=== PATIENT | male | born 1945 | race Caucasian/White ===

== ENCOUNTER → 2018-12-30 | Outpatient (CLI) | payer MEDICARE ==
[2018-12-30 18:47] LABS: Chol/HDL Ratio 4.12
== END | disposition home or self-care (01) ==
LOC: LABWHC1 11:49
PROVIDERS: ATTEND Internal Medicine Cardiovascular Disease
DX: E78.2 Mixed hyperlipidemia (principal)
CPT/HCPCS: 36415; 80061; 84450; 84460

== ENCOUNTER → 2019-04-09 | Outpatient (CLI) | payer MEDICARE ==
[2019-04-09 11:57] LABS: HGB 15.7 gm/dL (13.0-17.5); MCHC 33.3 g/dL (31.0-37.0); MCV 99.2 fL (80.0-100.0); Mean Platelet Volume 8.4; Platelet Count 212 k/uL (150-450); RBC 4.74 m/uL (4.30-5.90); RDW 13.1 % (11.5-15.5); WBC 8.8 k/uL (3.8-10.6)
[2019-04-09 12:06] LABS: Potassium 4.8 mmol/L (3.5-5.1)
== END | disposition home or self-care (01) ==
LOC: LABPAT 10:57
PROVIDERS: ATTEND Internal Medicine Cardiovascular Disease
DX: Z01.812 Encounter for preprocedural laboratory examination (principal); I48.21 Permanent atrial fibrillation
CPT/HCPCS: 80051; 82565; 84520; 85027

== ENCOUNTER → 2019-04-23 | Day surgery (SDC) | payer MEDICARE ==
[2019-04-21 11:40] VITALS: BMI 30.6
[~2019-04-23] MED LIST: ALPRAZolam 0.25 MG TAB PO PRN; ALPRAZolam 0.5 MG TAB PO PRN; ASPIRIN 325 MG TAB PO ONE; ATORVASTATIN 80 MG TAB PO ONE; IOPAMIDOL-370 125ML BTL INJ ONE; LIDOCAINE 1% INJ 10MG/ML (20 ML MDV) ONE; LIDOCAINE 1% INJ 10MG/ML (20 ML MDV) SQ ONE; MIDAZOLAM 2 MG/2 ML VIAL IV ONE; NITROGLYCERIN SL TABS 0.4 MG TAB SUBLINGUAL PRN; SODIUM CHLORIDE 0.9% 1,000 ML IV ONE; SODIUM CHLORIDE 0.9% 1,000 ML IV SCH; SODIUM CHLORIDE 0.9% 1,000 ML in EMPTY BAG 1 BAG IV ONE; fentaNYL (PF) 50 MCG/ML 2 ML AMP IV ONE; fentaNYL (PF) 50 MCG/ML 2 ML AMP ONE
[2019-04-23 08:08] LABS: Glucose,Whole Blood 94 mg/dL (75-99)
[2019-04-23 08:20] LABS: Prothrombin Time 10.6 sec (9.0-12.0)
[2019-04-23] MEDS: BENZOCAINE SPRAY 1 CAN MUCOUS MEM ONE ×2 (09:24→09:27)
--- NOTE | 2019-04-23 10:00 | ECHOT ---
TRANSESOPHAGEAL ECHOCARDIOGRAM INDICATION: Aortic stenosis. PROCEDURE NOTE: After obtaining informed consent, transesophageal echocardiogram was performed in left lateral position using an Omniplane probe. Local and IV sedation were obtained by 1 mg of Versed and 50 mcg of fentanyl. The patient tolerated the procedure well without any obvious immediate complications. The patient received moderate conscious sedation. Total sedation time was 5 minutes. FINDINGS: 1. Aortic valve is a 3-leaflet valve appears calcified with moderate to severe restriction in leaflet mobility. By planimetry, the valve area is 0.7 square centimeters. 2. Mitral valve shows mild tiny calcification with mild mitral regurgitation. 3. Tricuspid valve shows mild tricuspid regurgitation. 4. Interatrial Septum: There is no evidence of onxf-ed-xibyq shunt by color-flow Doppler or sitbw-dz-apqw shunt by agitated saline contrast study. 5. Aorta shows moderate atherosclerotic changes. Aortic root measures within normal limits. 6. Left ventricle has normal size concentric left ventricular hypertrophy with normal LV function. 7. Left atrium appears enlarged. 8. Right atrium and right ventricle exam within normal limits. CONCLUSIONS: Severe aortic stenosis in a patient with 3-leaflet aortic valve that is heavily calcified and shows restricted leaflet mobility. MMODL / IJN: [id number] /
[2019-04-23 10:49] VITALS: RESP 14
--- NOTE | 2019-04-23 11:15 | CC ---
CARDIAC CATHETERIZATION REPORT PROCEDURE NOTE: After obtaining informed consent, left heart catheterization and coronary angiogram were performed via the right femoral artery using standard Angel catheters. Patient tolerated the procedure well without any obvious immediate complications. A femoral angiogram was performed and Angio-Seal was deployed for hemostasis. Patient received moderate conscious sedation, total sedation time was 21 minutes. FINDINGS: 1. HEMODYNAMICS: Left ventricular end-diastolic pressure is 12 mm. There is no significant gradient across the aortic valve. 2. LEFT VENTRICULOGRAM: Left ventriculogram is not performed. HEMODYNAMICS: 1. Left ventricular end-diastolic pressure is 5 mm, there was a gradient of 17 mm across the aortic valve consistent with mild to moderate aortic stenosis. ANGIOGRAPHIC DATA: 1. LEFT MAIN CORONARY ARTERY: Left main coronary artery appears calcified but is free of significant stenosis. Divides into left anterior descending coronary artery and circumflex coronary artery. LAD appears calcified with a moderate atherosclerotic plaque in the proximal portion with a 40% stenosis. There is a septal programming intern that has ostial stenosis. 2. Circumflex coronary artery is a nondominant vessel that shows mild nonobstructive disease. 3. Right coronary artery is a dominant vessel and is free of significant stenosis. CONCLUSION: 1. Moderate atherosclerotic plaque involving proximal LAD. 2. Hxme-kv-bovtsiyy aortic stenosis. PLAN: I reviewed angiographic data with the patient and told him that he does not need aortic valve replacement at this stage as the gradient across the aortic valve is not suggestive of severe aortic stenosis at this time. I will continue with watchful waiting and optimal medical therapy. MMODL / IJN: [id number] /
--- NOTE | 2019-04-23 11:21 | LTR ---
DATE OF SERVICE: 04/23/2019 RE: Marc Rodriguez Dear Dr. Grayson; I performed transesophageal echo and cardiac catheterization and Marc Rodriguez. A detailed catheterization note is enclosed for your records. In brief, his cardiac catheterization revealed mild to moderate nonobstructive disease involving proximal LAD with [id number] aortic stenosis. The patient does not need aortic valve replacement at this time. Thank you for giving me the privilege to participate in the care of this pleasant gentleman. Sincerely, MD TEENA Dickerson / JALIL: [id number] /
[2019-04-23 16:22] VITALS: BP 146/72; PULSE 64
== END ==
LOC: CATHCVL 07:41
PROVIDERS: ATTEND Internal Medicine Cardiovascular Disease
DX: I25.10 Atherosclerotic heart disease of native coronary artery without angina pectoris (principal); I08.3 Combined rheumatic disorders of mitral, aortic and tricuspid valves; I70.0 Atherosclerosis of aorta; I48.11 Longstanding persistent atrial fibrillation; E11.9 Type 2 diabetes mellitus without complications; E78.5 Hyperlipidemia, unspecified; E78.2 Mixed hyperlipidemia; F17.210 Nicotine dependence, cigarettes, uncomplicated; Z79.01 Long term (current) use of anticoagulants; Z79.4 Long term (current) use of insulin; Z79.899 Other long term (current) drug therapy; Z82.49 Family history of ischemic heart disease and other diseases of the circulatory system
CPT/HCPCS: 93312; 93320; 93325; 93458; 85610; C1760; C1894; C1769; J2250; J2001; J3010; Q9967

== ENCOUNTER 2019-04-26 03:42 | Emergency (ER) | payer MEDICARE ==
[2019-04-26 05:34] LABS: Basophils # (A) 0.2 k/uL (0-0.2); Basophils % (A) 2 %; Eosinophils # (A) 0.4 k/uL (0-0.7); Eosinophils % (A) 4 %; HCT 44.1 % (39.0-53.0); HGB 14.7 gm/dL (13.0-17.5); Lymphocytes # (A) 2.3 k/uL (1.0-4.8); Lymphocytes % (A) 27 %; MCH 32.4 pg (25.0-35.0); MCHC 33.4 g/dL (31.0-37.0); Mean Platelet Volume 8.5; Monocytes # (A) 0.8 k/uL (0-1.0); Monocytes % (A) 9 %; Neutrophils # (A) 4.7 k/uL (1.3-7.7); Neutrophils % (A) 54 %; Platelet Count 247 k/uL (150-450); RBC 4.55 m/uL (4.30-5.90); RDW 12.9 % (11.5-15.5); WBC 8.7 k/uL (3.8-10.6)
--- NOTE | 2019-04-26 05:38 | ED ---
General Adult HPI - General Source: patient Mode of arrival: wheelchair Limitations: no limitations <Elif Martell - Last Filed: 04/26/19 05:34> <Tricia Norwood - Last Filed: 04/26/19 08:06> - General Chief complaint: Recheck/Abnormal Lab/Rx Stated complaint: Post Op Bruising Time Seen by Provider: 04/26/19 04:21 - History of Present Illness Initial comments: Marc Hough) is a pleasant 73 yo M who presents to the ER today for evaluation of bruising in his right groin. Patient states that he had a cardiac catheterization earlier in the week and was told that if he develops any bruising or pain he should come back to the hospital for reevaluation. Patient states he had a small bruise after the procedure but over the past day noticed a bruise seem to get bigger. Patient's concerned because he is on Coumadin but his levels might be up. He reports he is otherwise feeling well and is very happy that his cardiac catheterization well and he doesn't need to have bypass surgery. (Elif Martell) - Related Data Home Medications Medication Instructions Recorded Confirmed Atorvastatin [Lipitor] 40 mg PO DAILY 04/21/19 04/23/19 Lisinopril [Zestril] 10 mg PO DAILY 04/21/19 04/23/19 Warfarin [Coumadin] 7.5 mg PO SUTUTHSA 04/21/19 04/23/19 Warfarin [Coumadin] 10 mg PO MOWEFR 04/21/19 04/23/19 diphenhydrAMINE [Benadryl] 25 mg PO DAILY 04/21/19 04/23/19 Insulin Degludec [Tresiba] 30 units SQ HS 04/23/19 04/23/19 Allergies Allergy/AdvReac Type Severity Reaction Status Date / Time No Known Allergies Allergy Verified 04/26/19 03:54 Review of Systems ROS Other: All systems not noted in ROS Statement are negative. <Elif Martell - Last Filed: 04/26/19 05:34> ROS Other: All systems not noted in ROS Statement are negative. <Tricia Norwood - Last Filed: 04/26/19 08:06> ROS Statement: Those systems with pertinent positive or pertinent negative responses have been documented in the HPI. Past Medical History Past Medical History: COPD, Diabetes Mellitus, GERD/Reflux, Osteoarthritis (OA) Additional Past Medical History / Comment(s): CMP. Enlarged heart. Pacemaker ([employer]). Neuropathy feet. History of Any Multi-Drug Resistant Organisms: None Reported Past Surgical History: Heart Catheterization, Pacemaker Additional Past Surgical History / Comment(s): Lt knee 1983. Pacemaker change 2008, 2017. Past Anesthesia/Blood Transfusion Reactions: No Reported Reaction Type of Cardiac Device: Permanent Pacemaker Device Placement Date:: 2000 Past Psychological History: Anxiety, Depression Smoking Status: Current every day smoker Past Alcohol Use History: None Reported Past Drug Use History: None Reported - Past Family History Father Family Medical History: Cancer Mother Family Medical History: Cancer <Elif Martell - Last Filed: 04/26/19 05:34> General Exam Limitations: no limitations <Elif Martell - Last Filed: 04/26/19 05:34> - General Exam Comments Initial Comments: Physical Exam GENERAL: Patient is well-developed and well-nourished. Patient is nontoxic and well- hydrated and is in no distress. HENT: Normocephalic, Atraumatic. EYES: PERRL, EOMI PULMONARY: Unlabored respirations. No audible rales rhonchi or wheezing was noted. CARDIOVASCULAR: There is a regular rate and rhythm without any murmurs gallops or rubs. ABDOMEN: Soft and nontender with normal bowel sounds. SKIN: Palpable hematoma in the right groin, no palpable thrill There is a area of bruising in the right groin that tracks down medially, nontender no erythema no signs of infection : Deferred NEUROLOGIC: Patient is alert and oriented x3. Moving all extremities spontaneously MUSCULOSKELETAL: Normal extremities with adequate strength and full range of motion. No lower extremity swelling or edema. No calf tenderness. PSYCHIATRIC: Normal psychiatric evaluation. (Elif Martell) Course Vital Signs 04/26/19 04/26/19 03:50 06:45 Temperature 98.2 F 97 F L Pulse Rate 62 65 Respiratory 16 18 Rate Blood Pressure 134/79 150/83 O2 Sat by Pulse 100 98 Oximetry Medical Decision Making <Elif Martell - Last Filed: 04/26/19 05:34> - Lab Data Result diagrams: 04/26/19 05:18 04/26/19 05:18 <Tricia Norwood - Last Filed: 04/26/19 08:06> - Medical Decision Making Very well-appearing 73-year-old male who has bruising in the groin after cath there is no palpable thrill or obvious pseudoaneurysm however we will obtain labs to make sure INR is goal and obtain ultrasound. Patient arrived around 4 AM, advised the patient that we only have emergency ultrasound available and since this does not require emergent intervention (Elif Martell) The patient was signed out to me at shift change. Ultrasound was reviewed and demonstrates no signs of pseudoaneurysm. The results are discussed with the patient. INR is subtherapeutic. The patient is to follow-up with his primary care doctor and pulmonary physical therapist this week. Return to the emergency room for any worsening symptoms. The patient was in agreement with the treatment plan is discharge home in stable condition (Tricia Norwood) - Lab Data Lab Results 04/26/19 04/26/19 04/26/19 Range/Units 05:18 05:18 05:18 WBC 8.7 (3.8-10.6) k/uL RBC 4.55 (4.30-5.90) m/uL Hgb 14.7 (13.0-17.5) gm/dL Hct 44.1 (39.0-53.0) % MCV 97.0 (80.0-100.0) fL MCH 32.4 (25.0-35.0) pg MCHC 33.4 (31.0-37.0) g/dL RDW 12.9 (11.5-15.5) % Plt Count 247 (150-450) k/uL Neutrophils % 54 % Lymphocytes % 27 % Monocytes % 9 % Eosinophils % 4 % Basophils % 2 % Neutrophils # 4.7 (1.3-7.7) k/uL Lymphocytes # 2.3 (1.0-4.8) k/uL Monocytes # 0.8 (0-1.0) k/uL Eosinophils # 0.4 (0-0.7) k/uL Basophils # 0.2 (0-0.2) k/uL PT 11.1 (9.0-12.0) sec INR 1.1 (<1.2) APTT 26.6 (22.0-30.0) sec Sodium 135 L (137-145) mmol/L Potassium 5.5 H (3.5-5.1) mmol/L Chloride 103 (98-107) mmol/L Carbon Dioxide 28 (22-30) mmol/L Anion Gap 4 mmol/L BUN 15 (9-20) mg/dL Creatinine 0.90 (0.66-1.25) mg/dL Est GFR (CKD-EPI)AfAm >90 (>60 ml/min/1.73 sqM) Est GFR (CKD-EPI)NonAf 86 (>60 ml/min/1.73 sqM) Glucose 124 H (74-99) mg/dL Calcium 8.9 (8.4-10.2) mg/dL Disposition <Elif Martell - Last Filed: 04/26/19 05:34> Is patient prescribed a controlled substance at d/c from ED?: No Time of Disposition: 08:03 <Tricia Norwood - Last Filed: 04/26/19 08:06> Clinical Impression: Hematoma of groin, Subtherapeutic international normalized ratio (INR), S/P cardiac cath Disposition: HOME SELF-CARE Condition: Stable Instructions (If sedation given, give patient instructions): Hematoma (ED) Additional Instructions: Please follow-up with your primary care doctor in 2-4 days. Return to the emergency room for any new or worsening symptoms Referrals: Maximo Osuna MD [Primary Care Provider] - 1-2 days
[2019-04-26 05:42] LABS: African American GFR (CKD) >90 (>60 ml/min/1.73 sqM); Anion Gap 4 mmol/L; Blood Urea Nitrogen 15 mg/dL (9-20); Calcium 8.9 mg/dL (8.4-10.2); Carbon Dioxide 28 mmol/L (22-30); Chloride 103 mmol/L (98-107); Glucose 124 mg/dL (74-99); Non-African American GFR(CKD) 86 (>60 ml/min/1.73 sqM); Sodium 135 mmol/L (137-145)
[2019-04-26 05:44] LABS: Potassium 5.5 mmol/L (3.5-5.1)
[2019-04-26 05:58] LABS: INR 1.1 (<1.2); Partial Thromboplastin Time 26.6 sec (22.0-30.0); Prothrombin Time 11.1 sec (9.0-12.0)
[2019-04-26 06:49] VITALS: RESP 18
--- NOTE | 2019-04-26 07:39 | US ---
EXAMINATION TYPE: US lower ext pseudo artery RT DATE OF EXAM: 04/26/2019 COMPARISON: NONE CLINICAL HISTORY: concern for pseudoaneurysm after cardiac cath. Heart cath 04/23/19 right groin, bruis ing right groin for 1 day, patient on blood thinner EXAM PERFORMED: Grayscale and color Doppler duplex imaging performed of the groin, post cardiac cody ter to assess for pseudoaneurysm. SIDE PERFORMED: right Color and Waveform Doppler performed to assess for the presence of pseudoaneurysm; Is there evidence of AV shunting: no Hypoechoic area anterior to vessels right groin = 2.4 x 0.6 x 2.0cm with no vascularity seen at this time No popliteal fossa lesion is seen. IMPRESSION: 1. NO EVIDENCE OF A PSEUDOANEURYSM AT THIS TIME. 2. PROBABLE ORGANIZING HEMATOMA ANTERIOR TO THE COMMON FEMORAL ARTERY.
[2019-04-26 08:12] VITALS: BP 157/90; PULSE 80; TEMP 98.3
== END 2019-04-26 08:05 | disposition home or self-care (01) ==
LOC: EC 03:42
DX: S30.1XXA Contusion of abdominal wall, initial encounter (principal); R79.1 Abnormal coagulation profile; E11.40 Type 2 diabetes mellitus with diabetic neuropathy, unspecified; F17.200 Nicotine dependence, unspecified, uncomplicated; Z79.01 Long term (current) use of anticoagulants; Z79.4 Long term (current) use of insulin; Z79.899 Other long term (current) drug therapy; Z95.0 Presence of cardiac pacemaker; Z98.890 Other specified postprocedural states; X58.XXXA Exposure to other specified factors, initial encounter
CPT/HCPCS: 36415; 80048; 85025; 85610; 85730; 93975; 99284

== ENCOUNTER 2019-10-28 06:36 | Day surgery (SDC) | payer MEDICARE ==
[2019-10-23 11:29] VITALS: BMI 31.4
[2019-10-28 07:33] VITALS: TEMP 97
[2019-10-28] MEDS ORDERED: LIDOCAINE 1% (10MG/ML) FOR IV START INTRADERMA ONE (07:33)
[2019-10-28] MEDS: LACTATED RINGERS 1,000 ML IV SCH ×3 (07:33→09:21)
[2019-10-28 07:36] LABS: Glucose,Whole Blood 137 mg/dL (75-99)
[2019-10-28] MEDS ORDERED: ePHEDrine SULFATE/0.9% NACL/PF 50 MG/5 ML SYRINGE IV ONE (07:36)
[2019-10-28] MEDS ORDERED: PROPOFOL 10 MG/ML 20 ML VIAL IV ONE (07:36)
[2019-10-28] MEDS ORDERED: LIDOCAINE 1% INJ 10MG/ML (20 ML MDV) ONE (07:36)
--- NOTE | 2019-10-28 07:47 | P.GSHP ---
History of Present Illness H&P Date: 10/28/19 CHIEF COMPLAINT: Colon screen HISTORY OF PRESENT ILLNESS: The patient is a 74-year-old male who presents for colon screen. Lower endoscopy was offered for further evaluation and management. PAST MEDICAL HISTORY: Please see list. PAST SURGICAL HISTORY: Please see list. MEDICATIONS: Please see list. ALLERGIES: Please see list. SOCIAL HISTORY: No illicit drug use FAMILY HISTORY: No reports of Crohn disease or ulcerative colitis. REVIEW OF ORGAN SYSTEMS: CONSTITUTIONAL: No reports of fevers or chills. PHYSICAL EXAM: VITAL SIGNS: Stable GENERAL: Well-developed pleasant in no acute distress. HEENT: No scleral icterus. Extraocular movements grossly intact. Moist buccal mucosa. NECK: Supple without lymphadenopathy. CHEST: Unlabored respirations. Equal bilateral excursions. CARDIOVASCULAR: Regular rate and rhythm. Distal 2+ pulses. ABDOMEN: Soft, nontender, nondistended. MUSCULOSKELETAL: No clubbing, cyanosis, or edema. ASSESSMENT: 1. Colon screen. PLAN: 1. Recommend proceeding with a lower endoscopy Past Medical History Past Medical History: COPD, Diabetes Mellitus, Osteoarthritis (OA), Pneumonia, Prostate Disorder Additional Past Medical History / Comment(s): cadiomyopathy, Neuropathy feet, leaky heart valve, varicose veins, hiatal hrenia, constipation, History of Any Multi-Drug Resistant Organisms: None Reported Past Surgical History: Heart Catheterization, Orthopedic Surgery, Pacemaker, Tonsillectomy Additional Past Surgical History / Comment(s): pacemaker change 2008, 2016, left knee arthroscopy, surgery on left heel to remove a benign tumor, cervical fusion, Past Anesthesia/Blood Transfusion Reactions: No Reported Reaction Type of Cardiac Device: Permanent Pacemaker Device Placement Date:: 07/10/16-[place] Smoking Status: Current every day smoker - Past Family History Father Family Medical History: Cancer Mother Family Medical History: Cancer Medications and Allergies Home Medications Medication Instructions Recorded Confirmed Type Atorvastatin [Lipitor] 40 mg PO DAILY 04/21/19 10/28/19 History Warfarin [Coumadin] 7.5 mg PO SUTUWETHSA 04/21/19 10/28/19 History Warfarin [Coumadin] 10 mg PO MOFR 04/21/19 10/28/19 History lisinopriL [Zestril] 10 mg PO DAILY 04/21/19 10/28/19 History Insulin Degludec [Tresiba] 25 units SQ 0930 04/23/19 10/28/19 History Fluticasone/Vilanterol [Breo 1 inhalation PO Q24HR 10/23/19 10/28/19 History Ellipta 100-25 Mcg Inhaler] Loratadine [Claritin] 10 mg PO DAILY 10/23/19 10/28/19 History PARoxetine [Paxil] 20 mg PO DAILY 10/23/19 10/28/19 History traMADol HCL [Ultram] 50 mg PO Q8HR PRN 10/23/19 10/28/19 History Allergies Allergy/AdvReac Type Severity Reaction Status Date / Time No Known Allergies Allergy Verified 10/28/19 07:15 Surgical - Exam Vital Signs Temp Pulse Resp BP Pulse Ox 97 F L 67 16 139/77 100 10/28/19 07:32 10/28/19 07:32 10/28/19 07:32 10/28/19 07:32 10/28/19 07:32 Results - Labs Abnormal Lab Results - Last 24 Hours (Table) 10/28/19 Range/Units 07:30 POC Glucose (mg/dL) 137 H (75-99) mg/dL
[2019-10-28 07:53] LABS: Prothrombin Time 10.5 sec (9.0-12.0)
--- NOTE | 2019-10-28 08:27 | P.PCN ---
Date of Procedure: 10/28/19 Description of Procedure: PREOPERATIVE DIAGNOSIS: Family history malignant colon polyps Colonoscopy screening, first Chronic anticoagulant use Hypertensive heart disease High risk colon screening POSTOPERATIVE DIAGNOSIS: Family history malignant colon polyps Cecal adenoma Ascending colon adenoma Transverse colon adenoma Chronic anticoagulant use Hypertensive heart disease OPERATION: Colonoscopy to the ileocecal valve and appendiceal orifice, cecum Colonoscopy with multiple hot snare polypectomies Colonoscopy with cold forceps biopsies SURGEON: Tash Welsh MD. ANESTHESIA: MAC. INDICATIONS: The patient is an 74-year-old male who presents family history of malignant colon polyps and his first colonoscopy screening. Benefits and risks were described and informed consent was obtained. DESCRIPTION OF PROCEDURE: The patient had undergone Golytely He had been brought into the operating room and laid in the left lateral decubitus position. After adequate intravenous sedation, the rectum was examined with 2% lidocaine jelly. The prostate fossa was unremarkable. No external hemorrhoids were encountered. The rectal tone was within normal limits. No lesions were palpated in the rectal vault. An Olympus colonoscope was advanced until the cecum, ileocecal valve and appendiceal orifice were clearly viewed. The prep was poor limiting view of the colon mucosa. No sigmoid diverticulosis was encountered. Multiple colonic polyps were found and snare polypectomy including a cold forceps. No evidence of focal colitis was found. Retroflexion of the scope demonstrated grade 2 internal hemorrhoids without active bleeding or inflammation. The colon was desufflated. The patient had tolerated the procedure well. Withdrawal time was over 6 minutes. FINDINGS: Aronchick preparation quality scale 3 (1-5) Internal hemorrhoids, grade 2 No external hemorrhoids No arteriovenous malformations. No sigmoid diverticulosis Removal of 4 polyps: - Snare polypectomy mid transverse colon, 8 mm tubulovillous adenoma polyp. - Snare polypectomy proximal transverse colon, 6 mm flat villous adenoma polyp. - Snare polypectomy ascending colon, 10 mm flat villous adenoma polyp. - Snare polypectomy at cecum including cold forceps biopsy, 5 mm flat villous adenoma polyp. No focal colitis. RECOMMENDATIONS: Given severity of tubular adenomas, recommend repeat colonoscopy 1 year, 2020 With poor prep, will need 2-day bowel prep for future preps Plan - Discharge Summary New Discharge Prescriptions: Continue lisinopriL [Zestril] 10 mg PO DAILY Atorvastatin [Lipitor] 40 mg PO DAILY Warfarin [Coumadin] 10 mg PO MOFR Warfarin [Coumadin] 7.5 mg PO SUTUWETHSA Insulin Degludec [Tresiba] 25 units SQ 0930 Fluticasone/Vilanterol [Breo Ellipta 100-25 Mcg Inhaler] 1 inhalation PO Q24HR Loratadine [Claritin] 10 mg PO DAILY traMADol HCL [Ultram] 50 mg PO Q8HR PRN PRN Reason: Pain PARoxetine [Paxil] 20 mg PO DAILY Discharge Medication List Atorvastatin [Lipitor] 40 mg PO DAILY 04/21/19 [History] Warfarin [Coumadin] 7.5 mg PO SUTUWETHSA 04/21/19 [History] Warfarin [Coumadin] 10 mg PO MOFR 04/21/19 [History] lisinopriL [Zestril] 10 mg PO DAILY 04/21/19 [History] Insulin Degludec [Tresiba] 25 units SQ 0930 04/23/19 [History] Fluticasone/Vilanterol [Breo Ellipta 100-25 Mcg Inhaler] 1 inhalation PO Q24HR 10/23/19 [History] Loratadine [Claritin] 10 mg PO DAILY 10/23/19 [History] PARoxetine [Paxil] 20 mg PO DAILY 10/23/19 [History] traMADol HCL [Ultram] 50 mg PO Q8HR PRN 10/23/19 [History] Follow up Appointment(s)/Referral(s): Tash Welsh MD [STAFF PHYSICIAN] - 11/05/19 Patient Instructions/Handouts: *Surgery [facility] - (Anesthesia) Endoscopy Discharge Instructions, Colonoscopy (DC), Colorectal Polyps (DC), Constipation (DC) Activity/Diet/Wound Care/Special Instructions: START COUMADIN, 10/31/19. Will need to do a 2-day prep. Repeat colonoscopy in one year, 2020 Discharge Disposition: HOME SELF-CARE
[2019-10-28 08:44] VITALS: RESP 18
[2019-10-28 09:21] VITALS: BP 145/85; PULSE 59
== END 2019-10-28 09:45 | disposition home or self-care (01) ==
LOC: ORWHC2ENDO 06:36
PROVIDERS: ATTEND Surgery Plastic and Reconstructive Surgery
DX: Z12.11 Encounter for screening for malignant neoplasm of colon (principal); D12.0 Benign neoplasm of cecum; D12.2 Benign neoplasm of ascending colon; D12.3 Benign neoplasm of transverse colon; K64.1 Second degree hemorrhoids; Z80.0 Family history of malignant neoplasm of digestive organs; I11.9 Hypertensive heart disease without heart failure; J44.9 Chronic obstructive pulmonary disease, unspecified; M19.90 Unspecified osteoarthritis, unspecified site; Z87.01 Personal history of pneumonia (recurrent); F17.200 Nicotine dependence, unspecified, uncomplicated; N42.9 Disorder of prostate, unspecified; I42.9 Cardiomyopathy, unspecified; I10 Essential (primary) hypertension; I48.91 Unspecified atrial fibrillation; E11.42 Type 2 diabetes mellitus with diabetic polyneuropathy; I38 Endocarditis, valve unspecified; I83.90 Asymptomatic varicose veins of unspecified lower extremity; K44.9 Diaphragmatic hernia without obstruction or gangrene; Z95.0 Presence of cardiac pacemaker; E78.5 Hyperlipidemia, unspecified; Z98.890 Other specified postprocedural states; Z98.1 Arthrodesis status; Z97.2 Presence of dental prosthetic device (complete) (partial); Z79.4 Long term (current) use of insulin; Z79.01 Long term (current) use of anticoagulants; Z79.891 Long term (current) use of opiate analgesic; Z79.899 Other long term (current) drug therapy
CPT/HCPCS: 45385; 88305; 85610; J2001; J2704; 45380

== ENCOUNTER → 2020-01-15 | Outpatient (CLI) | payer MEDICARE ==
[2020-01-15 15:49] LABS: Chol/HDL Ratio 4.03; LDL Cholesterol,Calculated 74.6 mg/dL (0.0-131.0); VLDL Calculation 19.4 mg/dL (5.00-40.00)
== END | disposition home or self-care (01) ==
LOC: LABWHC1 08:58
PROVIDERS: ATTEND Internal Medicine Cardiovascular Disease
DX: E78.2 Mixed hyperlipidemia (principal)
CPT/HCPCS: 36415; 80061; 84450; 84460

== ENCOUNTER → 2020-03-25 | Outpatient (CLI) | payer MEDICARE ==
--- NOTE | 2020-03-25 13:13 | XR ---
EXAM TYPE: LUMBAR SPINE X RAY SERIES COMPARISON: NONE HISTORY: Pain TECHNIQUE: 3 views are submitted. FINDINGS: Diffuse osteopenia. There is multilevel hypertrophic and degenerative change of the vertebral column. Vascular calcifications noted. No compression deformities. Multilevel facet arthropathy. IMPRESSION: 1. Multilevel severe degenerative disc disease and facet arthropathy with suspected multilevel forami nal encroachment. Consider MRI follow-up.
== END | disposition home or self-care (01) ==
LOC: RADXRMAIN 12:49
PROVIDERS: ATTEND Nurse Practitioner Family
DX: M51.37 Other intervertebral disc degeneration, lumbosacral region (principal); M47.817 Spondylosis without myelopathy or radiculopathy, lumbosacral region; G89.29 Other chronic pain
CPT/HCPCS: 72100

== ENCOUNTER 2020-10-27 08:34 | Emergency (ER) | payer MEDICARE ==
[2020-10-27 08:40] VITALS: TEMP 97.5
[2020-10-27] MEDS ORDERED: MORPHINE SULFATE 2 MG/ML SYRINGE IVP STA (08:58)
[2020-10-27] MEDS ORDERED: SODIUM CHLORIDE 0.9% 500 ML 500 ML IV ONE (08:58)
[2020-10-27] MEDS ORDERED: ONDANSETRON 4 MG/2 ML VIAL IVP STA (08:58)
--- NOTE | 2020-10-27 09:20 | ED ---
Back Pain HPI - General Chief Complaint: Back Pain/Injury Stated Complaint: Lower back pain/hip & knee pain Time Seen by Provider: 10/27/20 08:40 Source: patient Limitations: physical limitation - History of Present Illness Initial Comments: 75 year-old male patient presents to the emergency department for evaluation of low back pain with radiation of pain down the right leg. Patient states that he has history of low back pain and "sciatica". Patient states that he has been price ving pain to the back for the last 10 days. States that he woke from sleep today and the pain was radiating down the outside of the right leg to the knee. He states he is having some numbness and tingling to the right foot. Denies saddle anesthesia or loss of bowel or bladder control. States that he is also having left lower quadrant pain. He believes he had a fever last night. Denies any vomiting or diarrhea. Patient denies any recent rash, cough, shortness of breath, chest pain, back pain, numbness, tingling, dizziness, weakness, hematuria, dysuria, urinary urgency, urinary frequency, headache, visual changes, or any other complaints. - Related Data Home Medications Medication Instructions Recorded Confirmed Atorvastatin [Lipitor] 40 mg PO DAILY 04/21/19 10/27/20 Warfarin [Coumadin] 7.5 mg PO SUTUWETHSA 04/21/19 10/27/20 Warfarin [Coumadin] 10 mg PO MOFR 04/21/19 10/27/20 lisinopriL [Zestril] 10 mg PO DAILY 04/21/19 10/27/20 Insulin Degludec [Tresiba] 24 units SQ DAILY 04/23/19 10/27/20 Loratadine [Claritin] 10 mg PO DAILY 10/23/19 10/27/20 traMADol HCL [Ultram] 50 mg PO Q8HR PRN 10/23/19 10/27/20 ALPRAZolam [Xanax] 0.25 mg PO Q8HR PRN 10/27/20 10/27/20 Albuterol Sulfate [Albuterol 2 puff PO RT-Q4H PRN 10/27/20 10/27/20 Sulfate Hfa] PARoxetine HCL [Paxil] 30 mg PO DAILY 10/27/20 10/27/20 traZODone HCL 50 - 100 mg PO HS PRN 10/27/20 10/27/20 Previous Rx's Medication Instructions Recorded Cyclobenzaprine [Flexeril] 5 mg PO TID #15 tablet 10/27/20 Naproxen [EC-Naprosyn] 500 mg PO BID PRN #30 tablet. 10/27/20 Allergies Allergy/AdvReac Type Severity Reaction Status Date / Time No Known Allergies Allergy Verified 10/27/20 11:18 Review of Systems ROS Statement: Those systems with pertinent positive or pertinent negative responses have been documented in the HPI. ROS Other: All systems not noted in ROS Statement are negative. Past Medical History Past Medical History: COPD, Diabetes Mellitus, Osteoarthritis (OA), Pneumonia, P rostate Disorder Additional Past Medical History / Comment(s): cadiomyopathy, Neuropathy feet, leaky heart valve, varicose veins, hiatal hrenia, constipation, chronic back karyn n History of Any Multi-Drug Resistant Organisms: None Reported Past Surgical History: Heart Catheterization, Orthopedic Surgery, Pacemaker, Tonsillectomy Additional Past Surgical History / Comment(s): pacemaker change 2008, 2016, left knee arthroscopy, surgery on left heel to remove a benign tumor, cervical fusion, Past Anesthesia/Blood Transfusion Reactions: No Reported Reaction Type of Cardiac Device: Permanent Pacemaker Device Placement Date:: 07/10/16-medtronic Past Psychological History: Anxiety, Depression Smoking Status: Current every day smoker Past Alcohol Use History: None Reported Past Drug Use History: None Reported - Past Family History Father Family Medical History: Cancer Mother Family Medical History: Cancer General Exam Limitations: physical limitation General appearance: alert, in no apparent distress, other (This is a well- developed, well-nourished adult male patient in no acute distress. Vital signs upon presentation are temperature 97.5F, pulse 70, respirations 18, blood pressure 139/78, pulse ox 97% on room air.) ENT exam: Present: normal exam, normal oropharynx, mucous membranes moist Respiratory exam: Present: normal lung sounds bilaterally. Absent: respiratory distress, wheezes, rales, rhonchi, stridor Cardiovascular Exam: Present: regular rate, normal rhythm, normal heart sounds. Absent: systolic murmur, diastolic murmur, rubs, gallop, clicks GI/Abdominal exam: Present: soft, tenderness (Left lower quadrant left upper quadrant tenderness), normal bowel sounds. Absent: distended, guarding, rebound, rigid Extremities exam: Present: normal inspection, full ROM, normal capillary refill, other (Skin to the lower legs is pink, warm, dry. Cap refill less than 3 seconds. Pedal and posttibial pulses 2+). Absent: tenderness, pedal edema, joint swelling, calf tenderness Neurological exam: Present: alert, oriented X3, CN II-XII intact Psychiatric exam: Present: normal affect, normal mood Skin exam: Present: warm, dry, intact, normal color. Absent: rash Course Vital Signs 10/27/20 10/27/20 08:35 10:32 Temperature 97.5 F L Pulse Rate 70 62 Respiratory 18 16 Rate Blood Pressure 139/78 121/78 O2 Sat by Pulse 97 92 L Oximetry Medical Decision Making - Medical Decision Making 75-year-old male patient presents to the emergency department today for evaluation of low back pain with radiation down the right leg is also reporting some left lower quadrant abdominal tenderness. Physical examination did reveal left lower quadrant abdominal tenderness. He is neurovascularly and neurologically intact. He is afebrile vital. Labs reviewed and are unremarkable. CT abdomen and pelvis did show evidence for dilation of the common bile duct, alk phos and bilirubin levels were normal. There is also evidence for thickening in the rectum, patient is have a colonoscopy scheduled for next month. Also showed prostatic enlargement. Lumbar CT was essentially negative. Patient symptoms are consistent with sciatica. He'll be treated with anti-inflammatories and muscle relaxers. He is instructed to follow-up with his primary care physician for recheck in 1-2 days. Return parameters were discussed in detail. He verbalizes understanding and agrees with this plan. Case discussed with my attending Dr. Lunsford. - Lab Data Result diagrams: 10/27/20 09:20 10/27/20 10:00 Lab Results 10/27/20 10/27/20 10/27/20 Range/Units 09:20 09:20 09:20 WBC 11.3 H (3.8-10.6) k/uL RBC 4.99 (4.30-5.90) m/uL Hgb 16.6 (13.0-17.5) gm/dL Hct 50.3 (39.0-53.0) % MCV 100.7 H (80.0-100.0) fL MCH 33.2 (25.0-35.0) pg MCHC 32.9 (31.0-37.0) g/dL RDW 13.3 (11.5-15.5) % Plt Count 247 (150-450) k/uL MPV 8.4 Neutrophils % 74 % Lymphocytes % 11 % Monocytes % 9 % Eosinophils % 1 % Basophils % 0 % Neutrophils # 8.4 H (1.3-7.7) k/uL Lymphocytes # 1.2 (1.0-4.8) k/uL Monocytes # 1.1 H (0-1.0) k/uL Eosinophils # 0.1 (0-0.7) k/uL Basophils # 0.1 (0-0.2) k/uL Sodium (137-145) mmol/L Potassium (3.5-5.1) mmol/L Chloride (98-107) mmol/L Carbon Dioxide (22-30) mmol/L Anion Gap mmol/L BUN (9-20) mg/dL Creatinine (0.66-1.25) mg/dL Est GFR (CKD-EPI)AfAm (>60 ml/min/1.73 sqM) Est GFR (CKD-EPI)NonAf (>60 ml/min/1.73 sqM) Glucose (74-99) mg/dL Plasma Lactic Acid Agustin 1.5 (0.7-2.0) mmol/L Calcium (8.4-10.2) mg/dL Total Bilirubin (0.2-1.3) mg/dL AST (17-59) U/L ALT (4-49) U/L Alkaline Phosphatase (38-126) U/L Total Protein (6.3-8.2) g/dL Albumin (3.5-5.0) g/dL Lipase (23-300) U/L Urine Color Yellow Urine Appearance Clear (Clear) Urine pH 6.5 (5.0-8.0) Ur Specific [place] 1.012 (1.001-1.035) Urine Protein Negative (Negative) Urine Glucose (UA) Negative (Negative) Urine Ketones Negative (Negative) Urine Blood Negative (Negative) Urine Nitrite Negative (Negative) Urine Bilirubin Negative (Negative) Urine Urobilinogen <2.0 (<2.0) mg/dL Ur Leukocyte Esterase Negative (Negative) 10/27/20 Range/Units 10:00 WBC (3.8-10.6) k/uL RBC (4.30-5.90) m/uL Hgb (13.0-17.5) gm/dL Hct (39.0-53.0) % MCV (80.0-100.0) fL MCH (25.0-35.0) pg MCHC (31.0-37.0) g/dL RDW (11.5-15.5) % Plt Count (150-450) k/uL MPV Neutrophils % % Lymphocytes % % Monocytes % % Eosinophils % % Basophils % % Neutrophils # (1.3-7.7) k/uL Lymphocytes # (1.0-4.8) k/uL Monocytes # (0-1.0) k/uL Eosinophils # (0-0.7) k/uL Basophils # (0-0.2) k/uL Sodium 137 (137-145) mmol/L Potassium 4.5 (3.5-5.1) mmol/L Chloride 105 (98-107) mmol/L Carbon Dioxide 26 (22-30) mmol/L Anion Gap 6 mmol/L BUN 17 (9-20) mg/dL Creatinine 0.96 (0.66-1.25) mg/dL Est GFR (CKD-EPI)AfAm >90 (>60 ml/min/1.73 sqM) Est GFR (CKD-EPI)NonAf 79 (>60 ml/min/1.73 sqM) Glucose 126 H (74-99) mg/dL Plasma Lactic Acid Agustin (0.7-2.0) mmol/L Calcium 9.3 (8.4-10.2) mg/dL Total Bilirubin 0.6 (0.2-1.3) mg/dL AST 32 (17-59) U/L ALT 24 (4-49) U/L Alkaline Phosphatase 71 (38-126) U/L Total Protein 5.7 L (6.3-8.2) g/dL Albumin 3.4 L (3.5-5.0) g/dL Lipase 70 (23-300) U/L Urine Color Urine Appearance (Clear) Urine pH (5.0-8.0) Ur Specific [place] (1.001-1.035) Urine Protein (Negative) Urine Glucose (UA) (Negative) Urine Ketones (Negative) Urine Blood (Negative) Urine Nitrite (Negative) Urine Bilirubin (Negative) Urine Urobilinogen (<2.0) mg/dL Ur Leukocyte Esterase (Negative) - Radiology Data Radiology results: report reviewed, image reviewed Disposition Clinical Impression: Sciatica, Low back pain, Abdominal pain Disposition: HOME SELF-CARE Condition: Good Instructions (If sedation given, give patient instructions): Sciatica (ED), Abdominal Pain (ED) Additional Instructions: Apply warm moist heat to the low back. Follow-up through primary care physician for recheck in 1-2 days. Return to the emergency department for any new, worsening, or concerning symptoms per Prescriptions: Naproxen [EC-Naprosyn] 500 mg PO BID PRN #30 tablet. PRN Reason: Pain Cyclobenzaprine [Flexeril] 5 mg PO TID #15 tablet Is patient prescribed a controlled substance at d/c from ED?: No Referrals: Wilder Poole DO [Primary Care Provider] - 1-2 days Time of Disposition: 12:04
[2020-10-27 09:33] LABS: Basophils # (A) 0.1 k/uL (0-0.2); Basophils % (A) 0 %; Eosinophils # (A) 0.1 k/uL (0-0.7); Eosinophils % (A) 1 %; HCT 50.3 % (39.0-53.0); HGB 16.6 gm/dL (13.0-17.5); Lymphocytes # (A) 1.2 k/uL (1.0-4.8); Lymphocytes % (A) 11 %; MCH 33.2 pg (25.0-35.0); MCHC 32.9 g/dL (31.0-37.0); MCV 100.7 fL (80.0-100.0); Mean Platelet Volume 8.4; Monocytes # (A) 1.1 k/uL (0-1.0); Monocytes % (A) 9 %; Neutrophils # (A) 8.4 k/uL (1.3-7.7); Neutrophils % (A) 74 %; Platelet Count 247 k/uL (150-450); RBC 4.99 m/uL (4.30-5.90); RDW 13.3 % (11.5-15.5); WBC 11.3 k/uL (3.8-10.6)
[2020-10-27 09:34] LABS: Appearance,Urine Clear (Clear); Bilirubin,Urine Negative (Negative); Blood,Urine Negative (Negative); Color,Urine Yellow; Glucose,Urine (UA) Negative (Negative); Ketones,Urine Negative (Negative); Leukocyte Esterase,Urine Negative (Negative); Nitrite,Urine Negative (Negative); PH, Urine 6.5 (5.0-8.0); Protein,Urine Negative (Negative); Specific Gravity,Urine 1.012 (1.001-1.035); Urobilinogen,Urine <2.0 mg/dL (<2.0)
[2020-10-27 10:33] VITALS: BP 121/78; PULSE 62; RESP 16
[2020-10-27 10:35] LABS: ALT 24 U/L (4-49); AST 32 U/L (17-59); African American GFR (CKD) >90 (>60 ml/min/1.73 sqM); Albumin 3.4 g/dL (3.5-5.0); Alkaline Phosphatase 71 U/L (38-126); Anion Gap 6 mmol/L; Blood Urea Nitrogen 17 mg/dL (9-20); Calcium 9.3 mg/dL (8.4-10.2); Carbon Dioxide 26 mmol/L (22-30); Chloride 105 mmol/L (98-107); Glucose 126 mg/dL (74-99); Lipase 70 U/L (23-300); Non-African American GFR(CKD) 79 (>60 ml/min/1.73 sqM); Potassium 4.5 mmol/L (3.5-5.1); Sodium 137 mmol/L (137-145); Total Bilirubin 0.6 mg/dL (0.2-1.3); Total Protein 5.7 g/dL (6.3-8.2)
--- NOTE | 2020-10-27 11:35 | CT ---
EXAMINATION TYPE: CT abdomen pelvis w con DATE OF EXAM: 10/27/2020 COMPARISON: NONE HISTORY: 75-year-old male low back pain, LLQ pain TECHNIQUE: Contiguous axial scanning of the abdomen and pelvis following administration of 100 ml Iso tena 300 IV contrast. Delayed images through the kidneys and coronal/sagittal reconstructions perform ed. CT DLP: 3300.4 mGycm Automated exposure control for dose reduction was used. FINDINGS: RIGHT VENTRICULAR PACER LEAD. PARTIALLY VISUALIZED OLD RIGHT-SIDED RIB FRACTURE 4 DAYS. TRACE PERICAR DIAL EFFUSION MEASURING 4 MM THICK. AORTIC VALVE CALCIFICATIONS PARTIALLY SEEN. SOME EMPHYSEMATOUS CH ASHLEY IN THE VISUALIZED LOWER LUNGS. NO PLEURAL EFFUSION. The bile duct is mildly dilated at 9 mm. Possible 7 mm filling defect in the distal bile duct, harrison l image 63 and axial image 30. Mild prominence of the intrahepatic biliary system. There is a 1.3 cm gallstone. No abnormal gallbladder distention. Portal venous system is patent. Mild thickening of the right adrenal gland without discrete nodularity. Duplex left renal collecting system. Suspect that the ureters join at the mid ureteric level. Small to moderate sized fatty umbilical hernia measuring 3.2 cm wide. Exophytic 2.1 cm cyst from the lower pole of the right kidney. Spleen within normal limits. Mild prominence to the main pancreatic duct at the level of the pancreatic head at 4 mm. 3.6 cm diverticulum of the second portion of the duodenum projecting into the pancreatic head region. Moderate atherosclerotic calcifications infrarenal abdominal aorta and common iliac arteries. Fusifor m dilatation up to 3.1 cm. Normal appendix. Moderate stool burden. There is short segment annular narrowing and thickening at the mid rectum, coronal image 92. Axial im age 80. This could represent a focal area of prominent peristalsis. No dilated small bowel, free fluid, or free air. No mesenteric or retroperitoneal lymphadenopathy. Mild/moderate circumferential bladder wall thickening. Prostate gland is enlarged measuring 6.4 cm wi de with some heterogeneous density. Pelvic phleboliths. No abnormal fluid collection in the pelvis or pelvic lymphadenopathy. Bones: Mild degenerative change of the hips. Hypertrophic facet arthropathy mid to lower lumbar spine . Mild to moderate degenerative disc disease mid to lower lumbar spine. No osseous destructive proces s. IMPRESSION: 1. BILE DUCT MILDLY DILATED AT 9 MM. POSSIBLE 7 MM DISTAL BILE DUCT STONE VERSUS ADJACENT PANCREATIC CALCIFICATION. CORRELATE WITH ALKALINE PHOSPHATASE AND BILIRUBIN LEVELS TO EXCLUDE EARLY BILIARY OBST RUCTION. 2. SHORT SEGMENT ANNULAR NARROWING AND THICKENING AT THE MID RECTUM, CORONAL IMAGE 92 COULD REPRESENT A FOCAL AREA OF PROMINENT PERISTALSIS. CORRELATE FOR ANY OCCULT BLOOD PER RECTUM AND DIRECT VISUALIZ ATION TO EXCLUDE NEOPLASM ESPECIALLY IF ROUTINE SCREENING COLONOSCOPIES ARE NOT BEING PERFORMED. 3. 1.3 CM GALLSTONE. INCIDENTAL DUPLEX LEFT RENAL COLLECTING SYSTEM DOWN TO THE MID URETER LEVEL. SMA [id number] SIZED 3.2 CM FATTY UMBILICAL HERNIA. 4. PROSTATOMEGALY AT 6.4 CM WIDE. CIRCUMFERENTIAL BLADDER WALL THICKENING LIKELY CHRONIC BLADDER WALL HYPERTROPHY.
--- NOTE | 2020-10-27 11:42 | CT ---
EXAMINATION TYPE: CT lumbar spine w con DATE OF EXAM: 10/27/2020 COMPARISON: Lumbar spine x-ray March 25, 2020 HISTORY: low back pain CT DLP: 3300.4 mGycm Automated exposure control for dose reduction was used. CONTRAST: CT scan of the lumbar is performed with IV Contrast, patient injected with 100 mL of Isovue 300. Enhanced CT of the lumbar spine was performed. Bone and soft tissue window settings are submitted as well as coronal and sagittal reconstructions. There are 5 lumbar-type vertebra. Mild to moderate disc space narrowing with moderate right-sided spu rring at L5-S1 level. Vacuum disc phenomenon. Vacuum disc phenomenon with mild to moderate left spurr ing at L4-L5 level. Mild to moderate additional multilevel anterior lateral spurring. Vertebral body heights are maintained. Spinal canal is preserved. No enhancing masses. No acute fracture or dislocat ion. Axial images at L4-L5 level show moderate broad disc bulge and mild facet arthropathy bilaterally. Mi ld effacement of the anterior thecal sac. Mild bilateral neural foraminal narrowing. Axial images at L5-S1 level show moderate to advanced right greater than left facet arthropathy. Smal l central disc protrusion. Please refer to same day CT abdomen and pelvis report for complete details outside the lumbar spine. Ectatic and atherosclerotic abdominal aorta is noted. Lumbar spine muscle bulk maintained. IMPRESSION: No acute fracture or dislocation. No suspicious enhancement..
[2020-10-27] MEDS ORDERED: ACET/COD 300 MG/30 MG STARTER PACK 6 TAB BTL PO STA (12:04)
== END 2020-10-27 12:21 | disposition home or self-care (01) ==
LOC: EC 08:34
DX: M54.40 Lumbago with sciatica, unspecified side (principal); R10.32 Left lower quadrant pain; R10.12 Left upper quadrant pain; J44.9 Chronic obstructive pulmonary disease, unspecified; E11.9 Type 2 diabetes mellitus without complications; F17.200 Nicotine dependence, unspecified, uncomplicated; Z79.899 Other long term (current) drug therapy; Z95.0 Presence of cardiac pacemaker; Z79.4 Long term (current) use of insulin
CPT/HCPCS: 36415; 80053; 83605; 83690; 85025; 81003; 72132; 74177; 99284; 96374; 96375; 96361; J2405; J2270; Q9967

== ENCOUNTER 2021-01-25 06:35 | Day surgery (SDC) | payer MEDICARE ==
[2021-01-23 13:34] VITALS: BMI 29.8
[~2021-01-25 06:35] MED LIST changes: -ALPRAZolam 0.25 MG TAB PO PRN; -ALPRAZolam 0.5 MG TAB PO PRN; -ASPIRIN 325 MG TAB PO ONE; -ATORVASTATIN 80 MG TAB PO ONE; -IOPAMIDOL-370 125ML BTL INJ ONE; +LACTATED RINGERS 1,000 ML IV SCH; +LIDOCAINE 1% (10MG/ML) FOR IV START INTRADERMA PRN; -LIDOCAINE 1% INJ 10MG/ML (20 ML MDV) ONE; -LIDOCAINE 1% INJ 10MG/ML (20 ML MDV) SQ ONE; -MIDAZOLAM 2 MG/2 ML VIAL IV ONE; -NITROGLYCERIN SL TABS 0.4 MG TAB SUBLINGUAL PRN; -SODIUM CHLORIDE 0.9% 1,000 ML IV ONE; -SODIUM CHLORIDE 0.9% 1,000 ML IV SCH; -SODIUM CHLORIDE 0.9% 1,000 ML in EMPTY BAG 1 BAG IV ONE; -fentaNYL (PF) 50 MCG/ML 2 ML AMP IV ONE; -fentaNYL (PF) 50 MCG/ML 2 ML AMP ONE
[2021-01-25 07:15] VITALS: TEMP 97.2
[2021-01-25 07:16] LABS: Glucose,Whole Blood 100 mg/dL (75-99)
[2021-01-25] MEDS ORDERED: PROPOFOL 10 MG/ML 20 ML VIAL IV ONE (07:38)
[2021-01-25 08:11] VITALS: BP 123/69
--- NOTE | 2021-01-25 08:12 | P.GSHP ---
History of Present Illness H&P Date: 01/25/21 CHIEF COMPLAINT: Colon screen HISTORY OF PRESENT ILLNESS: The patient is a 75-year-old male who presents for colon screen. Lower endoscopy was offered for further evaluation and management. PAST MEDICAL HISTORY: Please see list. PAST SURGICAL HISTORY: Please see list. MEDICATIONS: Please see list. ALLERGIES: Please see list. SOCIAL HISTORY: No illicit drug use FAMILY HISTORY: No reports of Crohn disease or ulcerative colitis. REVIEW OF ORGAN SYSTEMS: CONSTITUTIONAL: No reports of fevers or chills. RESPIRATION: Has COPD PHYSICAL EXAM: VITAL SIGNS: Stable GENERAL: Well-developed pleasant in no acute distress. HEENT: No scleral icterus. Extraocular movements grossly intact. Moist buccal mucosa. NECK: Supple without lymphadenopathy. CHEST: Mild labored respirations. Equal bilateral excursions. CARDIOVASCULAR: Regular rate and rhythm. Distal 2+ pulses. ABDOMEN: Soft, nontender, nondistended. MUSCULOSKELETAL: No clubbing, cyanosis, or edema. ASSESSMENT: 1. Colon screen. 2. COPD PLAN: 1. Recommend proceeding with a lower endoscopy, for which he's elevated risk Past Medical History Past Medical History: COPD, Diabetes Mellitus, Osteoarthritis (OA), Pneumonia, Prostate Disorder Additional Past Medical History / Comment(s): cadiomyopathy, Neuropathy feet, leaky heart valve, varicose veins, hiatal hrenia, constipation, chronic back pain History of Any Multi-Drug Resistant Organisms: None Reported Past Surgical History: Heart Catheterization, Orthopedic Surgery, Pacemaker, Tonsillectomy Additional Past Surgical History / Comment(s): pacemaker change 2008, 2016, left knee arthroscopy, surgery on left heel to remove a benign tumor, cervical fusion, Past Anesthesia/Blood Transfusion Reactions: No Reported Reaction Type of Cardiac Device: Permanent Pacemaker Device Placement Date:: 07/10/16-[employer] Smoking Status: Current every day smoker - Past Family History Father Family Medical History: Cancer Mother Family Medical History: Cancer Medications and Allergies Home Medications Medication Instructions Recorded Confirmed Type Atorvastatin [Lipitor] 40 mg PO DAILY 04/21/19 01/25/21 History Warfarin [Coumadin] 7.5 mg PO SUTUWETHSA 04/21/19 01/23/21 History Warfarin [Coumadin] 10 mg PO MOFR 04/21/19 01/23/21 History lisinopriL [Zestril] 10 mg PO DAILY 04/21/19 01/25/21 History Insulin Degludec [Tresiba] 24 units SQ DAILY 04/23/19 01/25/21 History Loratadine [Claritin] 10 mg PO DAILY 10/23/19 01/25/21 History traMADol HCL [Ultram] 50 mg PO Q8HR PRN 10/23/19 01/25/21 History ALPRAZolam [Xanax] 0.25 mg PO Q8HR PRN 10/27/20 01/25/21 History Naproxen [EC-Naprosyn] 500 mg PO BID PRN #30 tablet. 10/27/20 01/25/21 Rx PARoxetine HCL [Paxil] 30 mg PO DAILY 10/27/20 01/25/21 History traZODone HCL 50 - 100 mg PO HS PRN 10/27/20 01/25/21 History Cyclobenzaprine [Flexeril] 5 mg PO TID PRN 01/23/21 01/25/21 History Allergies Allergy/AdvReac Type Severity Reaction Status Date / Time No Known Allergies Allergy Verified 10/27/20 11:18 Surgical - Exam Vital Signs Temp Pulse Resp BP Pulse Ox 97.2 F L 65 16 167/79 94 L 01/25/21 07:08 01/25/21 07:08 01/25/21 07:08 01/25/21 07:08 01/25/21 07:08 Results - Labs Abnormal Lab Results - Last 24 Hours (Table) 01/25/21 Range/Units 07:13 POC Glucose (mg/dL) 100 H (75-99) mg/dL
[2021-01-25 08:24] VITALS: PULSE 70; RESP 18
--- NOTE | 2021-01-25 08:53 | P.PCN ---
Date of Procedure: 01/25/21 Description of Procedure: PREOPERATIVE DIAGNOSIS: Personal history of colon polyps POSTOPERATIVE DIAGNOSIS: Personal history of colon polyps Tubular adenoma hepatic flexure Tubular adenoma transverse colon Sigmoid diverticulosis Tubular adenoma sigmoid colon Internal hemorrhoids, grade 2 OPERATION: Colonoscopy to the ileocecal valve and appendiceal orifice, cecum Colonoscopy with hot snare polypectomy SURGEON: Tash Welsh MD. ANESTHESIA: MAC. INDICATIONS: The patient is an 75-year-old male who presents personal history of colon polyps. Last colonoscopy 5 years. Benefits and risks were described and informed consent was obtained. DESCRIPTION OF PROCEDURE: The patient had undergone Sutab prep. The patient had been brought into the operating room and laid in the left lateral decubitus position. After adequate intravenous sedation, the rectum was examined with 2% lidocaine jelly. The prostate was unremarkable. External hemorrhoids were encountered. The rectal tone was within normal limits. No lesions were palpated in the rectal vault. An Olympus colonoscope was advanced until the cecum, ileocecal valve and appendiceal orifice were clearly viewed. The prep was fair. Sigmoid diverticulosis was encountered. Colonic polyps were found and removed. No evidence of focal colitis was found. Retroflexion of the scope demonstrated grade 2 internal hemorrhoids without active bleeding or inflammation. The colon was desufflated. The patient had tolerated the procedure well. Withdrawal time was over 6 minutes. FINDINGS: Aronchick preparation quality scale 3 (1-5) Internal hemorrhoids, grade 2 External hemorrhoids, grade 2. No arteriovenous malformations. Sigmoid diverticulosis Removal of 4 polyps: - Snare polypectomy 30 cm from the anal verge, 5 mm tubulovillous adenoma polyp, sigmoid colon - Snare polypectomy ascending colon 2, 4 to 6 mm flat villous adenoma polyp. - Snare polypectomy hepatic flexure, 5 flat villous adenoma polyp. No focal colitis. RECOMMENDATIONS: Given severity of tubular adenomas, recommend repeat colonoscopy 2 years, 2022 Plan - Discharge Summary Discharge Rx Participant: No New Discharge Prescriptions: Continue lisinopriL [Zestril] 10 mg PO DAILY Atorvastatin [Lipitor] 40 mg PO DAILY Warfarin [Coumadin] 10 mg PO MOFR Warfarin [Coumadin] 7.5 mg PO SUTUWETHSA Insulin Degludec [Tresiba] 24 units SQ DAILY Loratadine [Claritin] 10 mg PO DAILY traMADol HCL [Ultram] 50 mg PO Q8HR PRN PRN Reason: Pain traZODone HCL 50 - 100 mg PO HS PRN PRN Reason: Insomnia ALPRAZolam [Xanax] 0.25 mg PO Q8HR PRN PRN Reason: Anxiety PARoxetine HCL [Paxil] 30 mg PO DAILY Naproxen [EC-Naprosyn] 500 mg PO BID PRN #30 tablet. PRN Reason: Pain Cyclobenzaprine [Flexeril] 5 mg PO TID PRN PRN Reason: MUSCLE SPASM Discharge Medication List Atorvastatin [Lipitor] 40 mg PO DAILY 04/21/19 [History] Warfarin [Coumadin] 7.5 mg PO SUTUWETHSA 04/21/19 [History] Warfarin [Coumadin] 10 mg PO MOFR 04/21/19 [History] lisinopriL [Zestril] 10 mg PO DAILY 04/21/19 [History] Insulin Degludec [Tresiba] 24 units SQ DAILY 04/23/19 [History] Loratadine [Claritin] 10 mg PO DAILY 10/23/19 [History] traMADol HCL [Ultram] 50 mg PO Q8HR PRN 10/23/19 [History] ALPRAZolam [Xanax] 0.25 mg PO Q8HR PRN 10/27/20 [History] Naproxen [EC-Naprosyn] 500 mg PO BID PRN #30 tablet. 10/27/20 [Rx] PARoxetine HCL [Paxil] 30 mg PO DAILY 10/27/20 [History] traZODone HCL 50 - 100 mg PO HS PRN 10/27/20 [History] Cyclobenzaprine [Flexeril] 5 mg PO TID PRN 01/23/21 [History] Follow up Appointment(s)/Referral(s): Tash Welsh MD [STAFF PHYSICIAN] - As Needed Patient Instructions/Handouts: Colorectal Polyps (GEN), Diverticulosis Diet (GEN), Diverticulosis (GEN) Activity/Diet/Wound Care/Special Instructions: Start COUMADIN 01/28/21 Discharge Disposition: HOME SELF-CARE
== END 2021-01-25 09:14 | disposition home or self-care (01) ==
LOC: ORWHC2ENDO 06:35
PROVIDERS: ATTEND Surgery Plastic and Reconstructive Surgery
DX: D12.3 Benign neoplasm of transverse colon (principal); D12.5 Benign neoplasm of sigmoid colon; E11.40 Type 2 diabetes mellitus with diabetic neuropathy, unspecified; F17.200 Nicotine dependence, unspecified, uncomplicated; J44.9 Chronic obstructive pulmonary disease, unspecified; K57.30 Diverticulosis of large intestine without perforation or abscess without bleeding; K64.8 Other hemorrhoids; M19.90 Unspecified osteoarthritis, unspecified site; Z79.01 Long term (current) use of anticoagulants; Z79.1 Long term (current) use of non-steroidal anti-inflammatories (NSAID); Z79.4 Long term (current) use of insulin; Z79.899 Other long term (current) drug therapy; Z95.0 Presence of cardiac pacemaker
CPT/HCPCS: 45385; 88305; J2704

== ENCOUNTER 2021-01-27 12:11 | Emergency (ER) | payer MEDICARE ==
[2021-01-27 13:13] VITALS: RESP 20; TEMP 97.7
[2021-01-27 18:19] LABS: Glucose,Whole Blood 151 mg/dL (75-99)
--- NOTE | 2021-01-27 18:45 | ED ---
General Adult HPI - General Chief complaint: Recheck/Abnormal Lab/Rx Stated complaint: High Sugar Time Seen by Provider: 01/27/21 18:17 Source: patient, family, RN notes reviewed, old records reviewed Mode of arrival: ambulatory Limitations: no limitations - History of Present Illness Initial comments: This is a 75-year-old male, alert and oriented 4, presents to the emergency room with complaints of elevated blood glucose levels over 300 today. He patient states that he did miss his morning insulin. He has been struggling with some congestion for a week and was seen in urgent care couple days ago and they put him on Mucinex. He did get the Covid vaccine. He denies any fevers, nausea or vomiting. He states while he was waiting in the waiting room today he did develop some chest pain that lasted just a few seconds when he stood up to go to the bathroom. It resolved when he sat back down. His ex- is at the bedside and stated that he seemed a little bit confused earlier today when his blood glucose was elevated. She states that he had a colonoscopy done on Saturday and had 4 polyps removed. She believe his electrolytes may be off due to the bowel prep. -: hour(s) (4) Location: chest Severity scale (1-10): 6 Quality: sharp Consistency: now resolved Improves with: rest Worsens with: none Associated Symptoms: confusion, other (congestion) Treatments Prior to Arrival: none - Related Data Home Medications Medication Instructions Recorded Confirmed Atorvastatin [Lipitor] 40 mg PO DAILY 04/21/19 01/27/21 Warfarin [Coumadin] 7.5 mg PO SUTUWETHSA 04/21/19 01/27/21 Warfarin [Coumadin] 10 mg PO MOFR 04/21/19 01/27/21 lisinopriL [Zestril] 10 mg PO DAILY 04/21/19 01/27/21 Insulin Degludec [Tresiba] 24 units SQ DAILY 04/23/19 01/27/21 Loratadine [Claritin] 10 mg PO DAILY 10/23/19 01/27/21 traMADol HCL [Ultram] 50 mg PO Q8HR PRN 10/23/19 01/27/21 ALPRAZolam [Xanax] 0.25 mg PO Q8HR PRN 10/27/20 01/27/21 PARoxetine HCL [Paxil] 30 mg PO DAILY 10/27/20 01/27/21 traZODone HCL 50 - 100 mg PO HS PRN 10/27/20 01/27/21 Cyclobenzaprine [Flexeril] 5 mg PO TID PRN 01/23/21 01/27/21 Previous Rx's Medication Instructions Recorded Naproxen [EC-Naprosyn] 500 mg PO BID PRN #30 tablet. 10/27/20 Allergies Allergy/AdvReac Type Severity Reaction Status Date / Time No Known Allergies Allergy Verified 01/27/21 19:30 Review of Systems ROS Statement: Those systems with pertinent positive or pertinent negative responses have been documented in the HPI. ROS Other: All systems not noted in ROS Statement are negative. Past Medical History Past Medical History: COPD, Diabetes Mellitus, Osteoarthritis (OA), Pneumonia, Prostate Disorder Additional Past Medical History / Comment(s): cadiomyopathy, Neuropathy feet, leaky heart valve, varicose veins, hiatal hrenia, constipation, chronic back pain History of Any Multi-Drug Resistant Organisms: None Reported Past Surgical History: Heart Catheterization, Orthopedic Surgery, Pacemaker, Tonsillectomy Additional Past Surgical History / Comment(s): pacemaker change 2008, 2016, left knee arthroscopy, surgery on left heel to remove a benign tumor, cervical fusion, Past Anesthesia/Blood Transfusion Reactions: No Reported Reaction Type of Cardiac Device: Permanent Pacemaker Device Placement Date:: [email or web address] Past Psychological History: Anxiety, Depression, Panic Disorder Smoking Status: Current every day smoker Past Alcohol Use History: None Reported Past Drug Use History: None Reported - Past Family History Father Family Medical History: Cancer Mother Family Medical History: Cancer General Exam Limitations: no limitations General appearance: alert, in no apparent distress Head exam: Present: atraumatic, normocephalic, normal inspection Eye exam: Present: normal appearance, EOMI ENT exam: Present: normal exam, mucous membranes dry, other (red oropharynx) Neck exam: Present: normal inspection, full ROM. Absent: tenderness, meningismus, lymphadenopathy, thyromegaly Respiratory exam: Present: normal lung sounds bilaterally. Absent: respiratory distress, wheezes, rales, rhonchi, stridor Cardiovascular Exam: Present: regular rate, normal rhythm, normal heart sounds. Absent: systolic murmur, diastolic murmur, rubs, gallop, clicks GI/Abdominal exam: Present: soft, normal bowel sounds. Absent: distended, tenderness, guarding, rebound, rigid Extremities exam: Absent: normal capillary refill (Right hand cold, capillary refill delayed) Back exam: Present: normal inspection. Absent: tenderness, CVA tenderness (R), CVA tenderness (L), muscle spasm, rash noted Neurological exam: Present: alert, oriented X3 Psychiatric exam: Present: normal affect, normal mood Skin exam: Present: warm (Bilateral hands cold with delayed capillary refill. Improved with warmth.), dry. Absent: rash, petechiae, pallor Course Vital Signs 01/27/21 01/27/21 13:09 21:34 Temperature 97.7 F Pulse Rate 66 67 Respiratory 20 20 Rate Blood Pressure 142/67 142/84 O2 Sat by Pulse 96 96 Oximetry EKG Findings - RI, Pacemaker, Normal: Normal tracing: normal tracing (Ventricularly paced rhythm with a ventricular rate of 63, QRS 0.152, QTC 0.478) Medical Decision Making - Medical Decision Making Mr. Rodriguez was alert and oriented 4. His family is at bedside and states that he is acting his normal self. He states that he did take his insulin prior to coming to the hospital. Chest x-ray shows no acute cardiopulmonary disease. There is no evidence of infiltrate. Blood glucose level is 129. Troponin is negative at 0.023. EKG shows a ventricularly paced rhythm with capture. His sodium is 132. Patient tolerated the same which and something to drink in the emergency room. He has no nausea vomiting or diarrhea. He has no chest pain or difficulty in breathing. He was offered admission for observation for his chest pain and opted to go home with his son and back with any worsening symptoms. He states that he did forget to take his insulin this morning. He did see his manager story this past week Dr. Banuelos. He son at bedside states he will be staying the night with the patient and will bring him back if there is any complications. I did discuss this case with Dr. Lunsford. - Lab Data Result diagrams: 01/27/21 20:14 01/27/21 20:14 Lab Results 01/27/21 01/27/21 01/27/21 Range/Units 18:17 20:14 20:14 WBC 13.7 H (3.8-10.6) k/uL RBC 4.64 (4.30-5.90) m/uL Hgb 15.2 (13.0-17.5) gm/dL Hct 45.9 (39.0-53.0) % MCV 98.9 (80.0-100.0) fL MCH 32.7 (25.0-35.0) pg MCHC 33.0 (31.0-37.0) g/dL RDW 13.1 (11.5-15.5) % Plt Count 192 (150-450) k/uL MPV 8.5 Neutrophils % 83 % Lymphocytes % 9 % Monocytes % 5 % Eosinophils % 0 % Basophils % 0 % Neutrophils # 11.4 H (1.3-7.7) k/uL Lymphocytes # 1.2 (1.0-4.8) k/uL Monocytes # 0.7 (0-1.0) k/uL Eosinophils # 0.0 (0-0.7) k/uL Basophils # 0.0 (0-0.2) k/uL PT 10.8 (9.0-12.0) sec INR 1.0 (<1.2) APTT 27.4 (22.0-30.0) sec Sodium (137-145) mmol/L Potassium (3.5-5.1) mmol/L Chloride (98-107) mmol/L Carbon Dioxide (22-30) mmol/L Anion Gap mmol/L BUN (9-20) mg/dL Creatinine (0.66-1.25) mg/dL Est GFR (CKD-EPI)AfAm (>60 ml/min/1.73 sqM) Est GFR (CKD-EPI)NonAf (>60 ml/min/1.73 sqM) Glucose (74-99) mg/dL POC Glucose (mg/dL) 151 H (75-99) mg/dL POC Glu [employer] ID [facility] Calcium (8.4-10.2) mg/dL Magnesium (1.6-2.3) mg/dL Total Bilirubin (0.2-1.3) mg/dL AST (17-59) U/L ALT (4-49) U/L Alkaline Phosphatase (38-126) U/L Troponin I (0.000-0.034) ng/mL Total Protein (6.3-8.2) g/dL Albumin (3.5-5.0) g/dL Amylase (30-110) U/L Lipase (23-300) U/L 01/27/21 01/27/21 Range/Units 20:14 20:14 WBC (3.8-10.6) k/uL RBC (4.30-5.90) m/uL Hgb (13.0-17.5) gm/dL Hct (39.0-53.0) % MCV (80.0-100.0) fL MCH (25.0-35.0) pg MCHC (31.0-37.0) g/dL RDW (11.5-15.5) % Plt Count (150-450) k/uL MPV Neutrophils % % Lymphocytes % % Monocytes % % Eosinophils % % Basophils % % Neutrophils # (1.3-7.7) k/uL Lymphocytes # (1.0-4.8) k/uL Monocytes # (0-1.0) k/uL Eosinophils # (0-0.7) k/uL Basophils # (0-0.2) k/uL PT (9.0-12.0) sec INR (<1.2) APTT (22.0-30.0) sec Sodium 132 L (137-145) mmol/L Potassium 4.0 (3.5-5.1) mmol/L Chloride 99 (98-107) mmol/L Carbon Dioxide 26 (22-30) mmol/L Anion Gap 7 mmol/L BUN 12 (9-20) mg/dL Creatinine 0.76 (0.66-1.25) mg/dL Est GFR (CKD-EPI)AfAm >90 (>60 ml/min/1.73 sqM) Est GFR (CKD-EPI)NonAf >90 (>60 ml/min/1.73 sqM) Glucose 129 H (74-99) mg/dL POC Glucose (mg/dL) (75-99) mg/dL POC Glu [employer] ID Calcium 8.8 (8.4-10.2) mg/dL Magnesium 1.9 (1.6-2.3) mg/dL Total Bilirubin 0.8 (0.2-1.3) mg/dL AST 44 (17-59) U/L ALT 30 (4-49) U/L Alkaline Phosphatase 89 (38-126) U/L Troponin I 0.023 (0.000-0.034) ng/mL Total Protein 6.2 L (6.3-8.2) g/dL Albumin 3.5 (3.5-5.0) g/dL Amylase 34 (30-110) U/L Lipase 40 (23-300) U/L Disposition Clinical Impression: Hyperglycemia Disposition: HOME SELF-CARE Condition: Good Additional Instructions: Return to the emergency room with any new or worsening symptoms including chest pain, shortness of breath or confusion. Continue taking your medications as prescribed and follow-up with your primary care doctor next week. Is patient prescribed a controlled substance at d/c from ED?: No Referrals: Wilder Poole DO [Primary Care Provider] - 1-2 days Time of Disposition: 21:20
[2021-01-27 20:21] LABS: Basophils % (A) 0 %; Eosinophils % (A) 0 %; HCT 45.9 % (39.0-53.0); HGB 15.2 gm/dL (13.0-17.5); Lymphocytes # (A) 1.2 k/uL (1.0-4.8); Lymphocytes % (A) 9 %; MCH 32.7 pg (25.0-35.0); MCV 98.9 fL (80.0-100.0); Mean Platelet Volume 8.5; Monocytes # (A) 0.7 k/uL (0-1.0); Monocytes % (A) 5 %; Neutrophils # (A) 11.4 k/uL (1.3-7.7); Neutrophils % (A) 83 %; Platelet Count 192 k/uL (150-450); RBC 4.64 m/uL (4.30-5.90); RDW 13.1 % (11.5-15.5); WBC 13.7 k/uL (3.8-10.6)
--- NOTE | 2021-01-27 20:24 | XR ---
EXAMINATION TYPE: XR chest 2V DATE OF EXAM: 01/27/2021 COMPARISON: NONE HISTORY: Chest pain TECHNIQUE: 3 views FINDINGS: There is no heart failure nor confluent pneumonic infiltrate. Costophrenic angles are clear . There are no hilar masses. There is left axillary pacemaker noted. There are chest leads. Bony thorax appears intact. IMPRESSION: No active cardiopulmonary disease.
[2021-01-27 20:34] LABS: Partial Thromboplastin Time 27.4 sec (22.0-30.0); Prothrombin Time 10.8 sec (9.0-12.0)
[2021-01-27 20:35] LABS: ALT 30 U/L (4-49); AST 44 U/L (17-59); African American GFR (CKD) >90 (>60 ml/min/1.73 sqM); Albumin 3.5 g/dL (3.5-5.0); Alkaline Phosphatase 89 U/L (38-126); Amylase 34 U/L (30-110); Anion Gap 7 mmol/L; Blood Urea Nitrogen 12 mg/dL (9-20); Calcium 8.8 mg/dL (8.4-10.2); Carbon Dioxide 26 mmol/L (22-30); Chloride 99 mmol/L (98-107); Glucose 129 mg/dL (74-99); Lipase 40 U/L (23-300); Magnesium 1.9 mg/dL (1.6-2.3); Non-African American GFR(CKD) >90 (>60 ml/min/1.73 sqM); Sodium 132 mmol/L (137-145); Total Bilirubin 0.8 mg/dL (0.2-1.3); Total Protein 6.2 g/dL (6.3-8.2)
[2021-01-27 21:35] VITALS: BP 142/84; PULSE 67
== END 2021-01-27 21:35 | disposition home or self-care (01) ==
LOC: EC 12:11
DX: E11.65 Type 2 diabetes mellitus with hyperglycemia (principal); J44.9 Chronic obstructive pulmonary disease, unspecified; F17.200 Nicotine dependence, unspecified, uncomplicated; Z79.4 Long term (current) use of insulin; Z79.899 Other long term (current) drug therapy
CPT/HCPCS: 36415; 71046; 80053; 82150; 83690; 83735; 84484; 85025; 85610; 85730; 93005; 99284